=== PATIENT | female | born 1980 | race Two or more races ===

== ENCOUNTER 2020-03-28 23:25 | Emergency (ER) | payer OTHER ==
[~2020-03-28] VITALS: Ht 167.6 cm; Wt 77.1 kg
[2020-03-29] MEDS ORDERED: ZEBUTAL 50-3251 EACH PO ×2 (02:32→02:33)
[2020-03-29] MEDS ORDERED: KEFLEX500 MG PO (02:44)
== END 2020-03-29 02:52 | disposition home or self-care (01) ==
LOC: ER 23:25
DX: R51.9 Headache, unspecified (principal)

== ENCOUNTER 2021-11-10 07:44 | Outpatient (CLI) | payer OTHER ==
[~2021-11-10 07:44] MED LIST: KEFLEX500 MG PO; ZEBUTAL 50-3251 EACH PO
== END 2021-11-10 07:49 | disposition home or self-care (01) ==
LOC: LAB 07:44
DX: Z03.818 Encounter for observation for suspected exposure to other biological agents ruled out (principal); Z20.822 Contact with and (suspected) exposure to COVID-19

== ENCOUNTER 2021-11-17 12:50 | Outpatient (CLI) | payer OTHER | END 2021-11-17 12:51 | disposition home or self-care (01) | LOC: LAB 12:50 | DX: Z20.828 Contact with and (suspected) exposure to other viral communicable diseases (principal); R06.02 Shortness of breath ==